=== PATIENT | female | born 1995 | race Caucasian/White ===

== ENCOUNTER 2018-08-16 04:45 | Inpatient (IN) ==
[2018-08-16] MEDS ORDERED: Oxytocin 30 Units/500ml Premix 30 UNITS/500 ML BAG IV.CONT PRN ×2 (05:12→15:33)
[2018-08-16] MEDS ORDERED: Sodium Chlor 0.9% Inj 500 ML IV.SIG PRN (05:14)
[2018-08-16] MEDS ORDERED: Oxytocin 30 Units/500ml Premix 30 UNITS/500 ML BAG IV.SIG ONE (05:14)
[2018-08-16] MEDS ORDERED: Naloxone Inj 0.4 MG/ML Vial IV.PUSH PRN ×2 (05:14→15:33)
[2018-08-16] MEDS ORDERED: Sod Chloride 0.9% Inj 1,000 ML IV.CONT PRN (05:14)
[2018-08-16] MEDS ORDERED: fentaNYL Citrate Inj 100 MCG/2 ML Ampul IV.PUSH PRN ×2 (05:14)
[2018-08-16] MEDS ORDERED: Citric Acid/Sodium Citrate Liq 30 ML UDC PO SCH (05:15)
[2018-08-16 05:54] LABS: Baso # (Auto) 0.1 th/mm3 (0.0-0.2); Baso % (Auto) 0.5 % (0.0-2.0); Eos # (Auto) 0.2 th/mm3 (0.0-0.4); Eos % (Auto) 1.9 % (0.0-4.0); Hematocrit 32.2 % (35.0-46.0); Hemoglobin 10.7 gm/dL (11.6-15.3); Lymph # (Auto) 2.3 th/mm3 (1.0-4.8); Lymph % (Auto) 20.2 % (9.0-44.0); Mean Corpuscular HGB Conc 33.3 % (32.0-36.0); Mean Corpuscular Hemoglobin 28.7 pg (27.0-34.0); Mean Corpuscular Volume 86.3 fL (80.0-100.0); Mean Platelet Volume 8.6 fL (7.0-11.0); Mono # (Auto) 0.9 th/mm3 (0.0-0.9); Mono % (Auto) 8.3 % (0.0-8.0); Neut # (Auto) 7.8 th/mm3 (1.8-7.7); Neut % (Auto) 69.1 % (16.0-70.0); Platelet Count 233 th/mm3 (150-450); Red Blood Count 3.73 mil/mm3 (4.00-5.30); Red Cell Distribution Width 14.1 % (11.6-17.2); White Blood Count 11.2 th/mm3 (4.0-11.0)
[2018-08-16 05:55] LABS: Amphetamine Urine With Conf Neg (Neg); Benzodiazepine Urine With Conf Neg (Neg); Cocaine Urine With Conf Neg (Neg); Opiates Urine With Conf Neg (Neg)
[2018-08-16 05:57] LABS: Cannabinoid Urine With Conf Neg (Neg)
[2018-08-16] MEDS ORDERED: fentaNYL 2MCG-Bupiv 0.125% Epi 150 ML EPIDURAL ONE (10:00)
[2018-08-16] MEDS ORDERED: fentaNYL 2MCG-Bupiv 0.125% Epi 150 ML EPIDURAL PRN (10:57)
[2018-08-16] MEDS ORDERED: fentaNYL Citrate Inj 100 MCG/2 ML Ampul EPIDURAL ONE (10:57)
--- NOTE | 2018-08-16 15:30 | P.OBDELI ---
Anesthesia: Epidural Episiotomy: midline Vaginal Delivery: Normal Presentation: Occiput anterior Nuchal Cord: x1 Delayed Cord Clamping (45 sec): Yes Placenta: Spontaneous delivery, Intact, 3 vessel cord Laceration: Episiotomy, 2 deg Repair: Chromic interrupted, Chromic running Estimated blood loss (mL): 350 : Male
[2018-08-16] MEDS ORDERED: Benzocaine 20% Top Spray 60 ML Can TOPICAL PRN (15:33)
[2018-08-16] MEDS ORDERED: Witch Hazel 50%/Glyderin 12.5% 40 Pad Jar RECTAL PRN (15:33)
[2018-08-16] MEDS ORDERED: Bisacodyl 10 MG Supp RECTAL PRN (15:33)
[2018-08-16] MEDS ORDERED: Diphtheria/Tetanus/Pertussis Vaccine Inj 0.5 ML Syringe IM ONE (16:00)
[2018-08-16] MEDS ORDERED: Measles/Mumps/Rubella Vaccine Inj 0.5 ML Vial SQ ONE (16:00)
[2018-08-16] MEDS ORDERED: Zolpidem Tartrate 5 MG Tablet PO PRN (21:00)
[2018-08-16] MEDS: Acetaminophen 325 MG Tablet PO PRN (21:10)
[2018-08-16] MEDS: Senna/Docusate Sodium 8.6/50 MG Tablet PO SCH (21:11)
[2018-08-17] MEDS ORDERED: Lidocaaine 1.5%/Epinephrine 1:200,000 PF Inj 5 ML Amp ONE (05:08)
[2018-08-17] MEDS ORDERED: Sodium Chlor 0.9% Inj 10 ML ONE (05:08)
[2018-08-17] MEDS ORDERED: Lidocaine PF 1% Inj 5 ML Vial ONE (05:08)
[2018-08-17] MEDS: Acetaminophen 325 MG Tablet PO PRN ×3 (06:12→19:12)
[2018-08-17] MEDS: Senna/Docusate Sodium 8.6/50 MG Tablet PO SCH ×2 (08:42→22:09)
[2018-08-17] MEDS: Sertraline 100 MG Tablet PO SCH (08:42)
[2018-08-17] MEDS ORDERED: Non-Formulary Drug (Pnv Cmb#95-Ferrous Fumarate-Fa [Prenatal] 1 TAB) PO SCH (09:00)
--- NOTE | 2018-08-17 12:24 | P.PNOB ---
Subjective Post day: 1 Interval history: PPD # 1 s/p , good pain control, no co Objective Vital Signs/I&O: Vital Signs 08/16/18 12:40 08/16/18 12:41 08/16/18 13:05 Temperature Pulse Rate 71 80 Respiratory Rate 18 Blood Pressure 115/81 122/60 08/16/18 13:35 08/16/18 14:05 08/16/18 14:30 Temperature 98.1 F Pulse Rate 77 83 130 H Respiratory Rate 18 Blood Pressure 118/72 129/66 108/60 08/16/18 15:29 08/16/18 15:30 08/16/18 15:45 Temperature 99.4 F Pulse Rate 119 H 131 H Respiratory Rate 18 18 Blood Pressure 119/75 111/84 08/16/18 15:46 08/16/18 16:00 08/16/18 16:01 Temperature Pulse Rate 103 H 117 H Respiratory Rate 18 Blood Pressure 127/91 H 122/68 08/16/18 16:15 08/16/18 17:00 08/16/18 17:56 Temperature 98.1 F Pulse Rate 92 H 95 H 91 H Respiratory Rate 18 20 Blood Pressure 126/61 131/70 120/77 08/16/18 20:45 08/17/18 07:40 Temperature 98.1 F 98.1 F Pulse Rate 91 H 86 Respiratory Rate 18 16 Blood Pressure 133/73 118/69 Intake & Output 08/16/18 08/17/18 08/17/18 18:59 06:59 18:59 Intake Total 1000 / 1000 Balance 1000 / 1000 Intake: IV 1000 / 1000 LR 1000 mL Inj 1,000 ML @ 125 1000 / 1000 mls/hr IV.CONT .Q8H [facility] Rx#: [id number] Result Diagrams: 08/16/18 05:25 Objective Remarks: GENERAL: Well-nourished, well-developed patient. CARDIOVASCULAR: Regular rate and rhythm without murmurs, gallops, or rubs. RESPIRATORY: Breath sounds equal bilaterally. No accessory muscle use. ABDOMEN/GI: Abdomen soft, non-tender. Fundus: Firm, non-tender at umbilicus. GENITOURINARY: Light to moderate bleeding. EXTREMITIES: No cyanosis or edema, non-tender, without signs of DVT. 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 [facility] Stop: 08/20/18 05:14 Lactated Ringer's (Lr 1000 Ml Inj) 1,000 mls @ 3,000 mls/hr IV.SIG UNSCH PRN PRN Reason: compromise or epidural Lactated Ringer's (Lr 1000 Ml Inj) 1,000 mls @ 125 mls/hr IV.CONT .Q8H [facility] Last Admin: 08/17/18 07:48 Dose: Not Given Sodium Chloride (Ns Inj) 1,000 mls @ 100 mls/hr IV.CONT .Q10H PRN PRN Reason: SEE LABEL COMMENTS Sodium Chloride (Ns Inj) 500 mls @ 1,000 mls/hr IV.SIG UNSCH PRN PRN Reason: SEE LABEL COMMENTS Fentanyl/Bupivacaine/Sodium Chlor (Fentanyl 2 Mcg-Bupiv 0.125% Epi) 150 mls @ 12 mls/hr EPIDURAL PRN PRN PRN Reason: for Labor Pain Last Admin: 08/16/18 10:30 Dose: 12 mls/hr Oxytocin (Pitocin 30 Units/Ns 500 Ml Premix) 30 units in 500 mls @ 100 mls/hr IV.CONT UNSCH PRN PRN Reason: Heavy bleeding Ibuprofen (Motrin) 800 mg PO Q8H PRN PRN Reason: For Cramping Last Admin: 08/17/18 06:11 Dose: 800 mg Lactulose (Lactulose Liq) 30 ml PO DAILY PRN PRN Reason: SEVERE CONSITIPATION Lidocaine HCl (Xylocaine 1% Inj) 0.1 ml I-DERMAL PRN PRN PRN Reason: For IV start Stop: 08/19/18 05:13 Lidocaine HCl (Xylocaine 1% Inj) 10 ml INFILTRATN PRN PRN PRN Reason: For episiotomy repair Stop: 08/18/18 05:13 Mineral Oil (Muri-Lube Oil) 10 ml TOPICAL PRN PRN PRN Reason: PRN perineal massage Naloxone HCl (Narcan Inj) 0.1 mg IV.PUSH Q2M PRN PRN Reason: for opiate reversal Ondansetron HCl (Zofran Odt) 4 mg PO Q6H PRN PRN Reason: NAUSEA OR VOMITING Last Admin: 08/17/18 12:13 Dose: 4 mg Oxycodone/Acetaminophen (Percocet 5/325 Mg) 2 tab PO Q4H PRN PRN Reason: PAIN SCALE 6 TO 10 Oxycodone/Acetaminophen (Percocet 5/325 Mg) 1 tab PO Q4H PRN PRN Reason: PAIN SCALE 3 TO 5 Senna/Docusate Sodium (Lesa-Colace) 1 tab PO BID [facility] Last Admin: 08/17/18 08:42 Dose: 1 tab Sennosides (Senokot) 17.2 mg PO Q12H PRN PRN Reason: Moderate Constipation Sertraline HCl (Zoloft) 100 mg PO DAILY [facility] Last Admin: 08/17/18 08:42 Dose: 100 mg Sodium Chloride (Ns Flush) 2 ml IV.FLUSH BID [facility] Last Admin: 08/17/18 08:42 Dose: 2 ml Sodium Chloride (Ns Flush) 2 ml IV.FLUSH PRN PRN PRN Reason: FLUSH AFTER USING IV ACCESS Witch Merly/Glycerin (Tucks Pads) 1 applicatio RECTAL QID PRN PRN Reason: HEMORRHOIDS Last Admin: 08/16/18 21:09 Dose: 1 applicatio Zolpidem Tartrate (Ambien) 5 mg PO HS PRN PRN Reason: SLEEP Assessment and Plan - Plan PPD # 1 s/p doing well, routine care, plan for discharge tomorrow
[2018-08-18] MEDS: Acetaminophen 325 MG Tablet PO PRN (06:11)
[2018-08-18 08:56] VITALS: BP 119/69; PULSE 89; RESP 18
[2018-08-18 08:57] VITALS: TEMP 98.1
--- NOTE | 2018-08-18 10:02 | P.PNOB ---
Subjective Post day: 2 Interval history: doing well PP Objective Vital Signs/I&O: Vital Signs 08/17/18 20:00 08/18/18 08:00 Temperature 97.9 F 98.1 F Pulse Rate 85 89 Respiratory Rate 17 18 Blood Pressure 135/66 119/69 Result Diagrams: 08/16/18 05:25 Objective Remarks: GENERAL: Well-nourished, well-developed patient. ABDOMEN/GI: Abdomen soft, non-tender. Fundus: Firm, non-tender at umbilicus. GENITOURINARY: Light to moderate bleeding. EXTREMITIES: No cyanosis or edema, non-tender, without signs of DVT. 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 [facility] Stop: 08/20/18 05:14 Lactated Ringer's (Lr 1000 Ml Inj) 1,000 mls @ 3,000 mls/hr IV.SIG UNSCH PRN PRN Reason: compromise or epidural Lactated Ringer's (Lr 1000 Ml Inj) 1,000 mls @ 125 mls/hr IV.CONT .Q8H [facility] Last Admin: 08/17/18 22:08 Dose: Not Given Sodium Chloride (Ns Inj) 1,000 mls @ 100 mls/hr IV.CONT .Q10H PRN PRN Reason: SEE LABEL COMMENTS Sodium Chloride (Ns Inj) 500 mls @ 1,000 mls/hr IV.SIG UNSCH PRN PRN Reason: SEE LABEL COMMENTS Fentanyl/Bupivacaine/Sodium Chlor (Fentanyl 2 Mcg-Bupiv 0.125% Epi) 150 mls @ 12 mls/hr EPIDURAL PRN PRN PRN Reason: for Labor Pain Last Admin: 08/16/18 10:30 Dose: 12 mls/hr Oxytocin (Pitocin 30 Units/Ns 500 Ml Premix) 30 units in 500 mls @ 100 mls/hr IV.CONT UNSCH PRN PRN Reason: Heavy bleeding Ibuprofen (Motrin) 800 mg PO Q8H PRN PRN Reason: For Cramping Last Admin: 08/18/18 06:10 Dose: 800 mg Lactulose (Lactulose Liq) 30 ml PO DAILY PRN PRN Reason: SEVERE CONSITIPATION Lidocaine HCl (Xylocaine 1% Inj) 0.1 ml I-DERMAL PRN PRN PRN Reason: For IV start Stop: 08/19/18 05:13 Mineral Oil (Muri-Lube Oil) 10 ml TOPICAL PRN PRN PRN Reason: PRN perineal massage Naloxone HCl (Narcan Inj) 0.1 mg IV.PUSH Q2M PRN PRN Reason: for opiate reversal Ondansetron HCl (Zofran Odt) 4 mg PO Q6H PRN PRN Reason: NAUSEA OR VOMITING Last Admin: 08/17/18 12:13 Dose: 4 mg Oxycodone/Acetaminophen (Percocet 5/325 Mg) 2 tab PO Q4H PRN PRN Reason: PAIN SCALE 6 TO 10 Oxycodone/Acetaminophen (Percocet 5/325 Mg) 1 tab PO Q4H PRN PRN Reason: PAIN SCALE 3 TO 5 Senna/Docusate Sodium (Lesa-Colace) 1 tab PO BID [facility] Last Admin: 08/17/18 22:09 Dose: 1 tab Sennosides (Senokot) 17.2 mg PO Q12H PRN PRN Reason: Moderate Constipation Sertraline HCl (Zoloft) 100 mg PO DAILY [facility] Last Admin: 08/17/18 08:42 Dose: 100 mg Sodium Chloride (Ns Flush) 2 ml IV.FLUSH BID [facility] Last Admin: 08/17/18 08:42 Dose: 2 ml Sodium Chloride (Ns Flush) 2 ml IV.FLUSH PRN PRN PRN Reason: FLUSH AFTER USING IV ACCESS Witch Merly/Glycerin (Tucks Pads) 1 applicatio RECTAL QID PRN PRN Reason: HEMORRHOIDS Last Admin: 08/16/18 21:09 Dose: 1 applicatio Zolpidem Tartrate (Ambien) 5 mg PO HS PRN PRN Reason: SLEEP Assessment and Plan - Plan PPD # 1 s/p doing well, routine care, plan for discharge tomorrow
[2018-08-18] MEDS: Senna/Docusate Sodium 8.6/50 MG Tablet PO SCH (10:08)
[2018-08-18] MEDS: Sertraline 100 MG Tablet PO SCH (10:08)
--- NOTE | 2018-08-18 10:09 | P.DS ---
Date of admission: 08/16/18 04:45 Primary care physician: Vernell Saucedo MD Brief History from admission: patient came for induction DS: Diagnosis - Discharge Diagnosis (1) (spontaneous vaginal delivery) Status: Acute DS: Summary Hospital Course: induction on 08/16/18 and DC home 08/18 - Time Spent with Patient Total time spent providing and/or coordinating discharge services: Less than 30 minutes Exam Vital signs: Vital Signs 08/17/18 20:00 08/18/18 08:00 Temperature 97.9 F 98.1 F Pulse Rate 85 89 Respiratory Rate 17 18 Blood Pressure 135/66 119/69 Intake & Output 08/17/18 08/18/18 08/18/18 18:59 06:59 18:59 Weight 74.843 kg - Constitutional no acute distress - Routine Abdominal Exam Present: soft, normoactive bowel sounds Results Procedures completed during hospitalization: Discharge Plan - Discharge Disposition Patient Disposition: Discharge Home - Discharge Condition Condition: Good - Discharge Order Discharge Orders: Discharge Order (Routine); Ordered 08/18/18 Ordered By: William Barnett - Physicians Team Primary Care Provider: Vernell Saucedo Attending Provider: Vernell Saucedo - Rxs /Orders / Referrals /Forms Prescriptions: Continue PNV [id number] [] 28 mg iron- 800 mcg Tablet 1 tab PO DAILY sertraline [Zoloft] 100 mg Tablet 100 mg PO DAILY Referrals: Vernell Saucedo MD [Primary Care Provider] - See Instructions - Post Discharge Care Plan Care Plan Goals: Discharge Plan of Care After Vaginal Delivery Congratulations on your new baby! We want your recovery to be aleman and trouble free. After having a baby, your body may be very tired. It can take time to recover from a vaginal delivery. You may stay in the hospital or center from 1 to 4 days. In some cases, you may be able to go home the same day. Changing Expectations for Parents: Most new mothers experience some form of the baby blues. These mood swings are caused by hormonal shifts in your body. Stress due to the recent changes in your life and lack of sleep also have an effect. The baby blues may last a few days or up to 2 weeks. Balancing the Blues: Recognize your need to talk, to feel protected, to have private time. Allow yourself to cry, to sit, to think. Ask for help when you need it, and accept help when its offered. Knowing your needs is not a weakness. Share your thoughts with your partner. Or metal pickling equipment operator the phone and call a friend, your mother , a sister, or an aunt. Rest, eat right, and get some light exercise. The mind feels best when the body feels good. Diet and Activity: * Eat fresh fruit and vegetables, whole grains, and bran cereals. * Drink plenty of water. * Dont strain to have a bowel movement. * Follow activity as directed. * After you deliver your baby, you can start to exercise when you feel ready. Let your body be your guide. If you are : * Ask before you take any medicine. * If you leak milk, it will help to nurse right before the activity. * Talk to your healthcare provider about alcohol, if you choose to drink. * When youre sick, check with your physician if the medications would impact the breast feeding * Ask your physician before taking any prescription or [id number] medicines, herbs, or supplements. * Ask your physician what to use for prevention while you are nursing. If you have Stitches: * Gently wipe from front to back after you urinate or have a bowel movement.. * After wiping, spray warm water on the area. Or you can have a sitz bath. This means sitting in a tub with a few inches of water in it. * Pat the area dry or use a hairdryer on a cool setting. * Do not use soap or any solution except water on the area. * You can take a shower unless told not to. * Change sanitary pads at least every 2 to 4 hours.. * Place cold or heat packs on the area as directed by your physician or nurses. Keep a thin towel between the pack and your skin. When to call your doctor: Call your doctor right away if you have: Fever of 100.5F (38C) or higher, or as directed by your doctor. Heavy or gushing bleeding from the vagina. Discharge that has a bad odor. No bowel movement within one week after the of your baby. Pain or urgency with urination, or inability to urinate. Severe pain in the belly or increased pain near your stitches. Signs of Depression include: You dont want to be with the baby. Your symptoms are not getting better, and youre getting more upset. You have no interest in eating or are not able to sleep. You think you may harm yourself or the baby. The Depression After Delivery hotline (043-662-6988) may also be helpful. If your symptoms worsen call your OB Physician, or go to an Urgent Care Center or Emergency Room Smoking is Dangerous to your health. Avoid second hand smoke Call the 24-hour crisis hotline for domestic abuse at Follow-Up: Do Not miss your follow-up appointment. Increasing symptoms of depression. Keep up with all your appointments and yearly check ups. Call 911: Call 911 right away if you have: Chest pain. Shortness of breath. Any pain or tenderness in your calf. Severe depression or Thoughts of harm to self and others.
== END 2018-08-18 11:51 | disposition home or self-care (01) ==
LOC: H2E 04:45 → H1EA 17:28
PROVIDERS: ADMIT Obstetrics & Gynecology; ATTEND Obstetrics & Gynecology